=== PATIENT | male | born 1955 | race Caucasian/White ===

== ENCOUNTER → 2021-01-17 | Outpatient (CLI) | payer MEDICARE, OTHER ==
--- NOTE | 2021-01-17 13:51 | Diagnostic Imaging Report ---
INDICATION: Ankle pain, right. TECHNIQUE: Three views of the right ankle. CORRELATION STUDY: None. FINDINGS: No acute bony abnormality. Ankle mortise is maintained with alignment anatomic. Very small questionable lucency in the lateral talar dome, which a very small osteochondral defect would be difficult to exclude. Small plantar calcaneal spur formation. Prominent vascular calcification. Soft tissues are otherwise unremarkable. IMPRESSION: Negative for acute bony abnormality of the ankle. Question of potential very small osteochondral defect in the lateral talar dome. Dictated by: Dictated on workstation # [id number]
== END ==
LOC: RAD FS 11:44
PROVIDERS: ATTEND Nurse Practitioner
DX: M25.571 Pain in right ankle and joints of right foot (principal)
CPT/HCPCS: 73610

== ENCOUNTER 2022-06-12 18:13 | Emergency (ER) | payer MEDICARE, OTHER ==
[~2022-06-12] VITALS: Ht 177 cm; Wt 111.0 kg
[2022-06-12 18:20] VITALS: BP 159/93
--- NOTE | 2022-06-12 18:20 | ED Upper Extremity ---
General Chief Complaint: Laceration Stated Complaint: R PINKY LAC Source: patient Exam Limitations: no limitations History of Present Illness Date Seen by Provider: Jun 12, 2022 Time Seen by Provider: 18:16 Initial Comments 66yoM RHD with no pertinent PMH coming in after using a mandolin cutting potatoes and sliced his right little finger on the tip shortly prior arrival. Has some mild stinging pain in the area which is better when he is putting pressure on it. Does not take any blood thinners. Has not taken any medicines for it as of yet. Otherwise denying any other acute complaints. He believes his last tetanus shot was more than 10 years ago. Allergies and Home Medications Allergies Coded Allergies: No Known Drug Allergies (Unverified , 06/12/22) Patient Home Medication List Home Medication List Reviewed: Yes Review of Systems Constitutional: No fever EENTM: no symptoms reported Respiratory: no symptoms reported Musculoskeletal: see HPI Skin: see HPI Past Wmywbrf-Yganuc-Tcsiya Hx Patient Social History Substance use?: No Physical Exam Vital Signs Vital Signs - First Documented 06/12/22 18:20 Temp 36.2 Pulse 103 Resp 16 B/P (MAP) 159/93 (115) Pulse Ox 94 O2 Delivery Room Air Capillary Refill : Height, Weight, BMI Height: '" Weight: lbs. oz. kg; BMI Method: General Appearance: WD/WN, no apparent distress HEENT: PERRL/EOMI, normal ENT inspection, pharynx normal Cardiovascular: regular rate, rhythm Respiratory: chest non-tender Gastrointestinal: No distended Back: normal inspection Shoulder: normal inspection Elbow/Forearm: normal inspection Wrist: Yes normal inspection Hand: Right (Right little finger on the distal aspect of it with a small flap roughly 1 and half centimeters with very thin skin cut off, it is able to lay back on itself easily and is very superficial) Neurologic/Tendon: normal sensation, normal motor functions, normal tendon functions Neurologic/Psychiatric: no motor/sensory deficits, alert, normal mood/affect Skin: normal color, warm/dry Procedures/Interventions Wound Location: Upper Extremities Other Wound Location Right little finger distally Wound Length (cm): 1.5 Wound's Depth, Shape: superficial Irrigated w/ Saline (ccs): 500 Other Closure Supply: Steri Strip 03/15", Mastisol, Wound Adhesive Progress The skin that was sliced with a mandolin was very thin and superficial, I think sutures would have torn right through it so it was closed with tissue adhesive followed by Steri-Strips and a bandage afterwards. Patient tolerated this well. Progress/Results/Core Measures Results/Orders My Orders Orders - DEBBIE OH MD Dipht,Pertuss(Acell),Tet Adult (Boostrix (06/12/22 18:30) Vital Signs/I&O 06/12/22 18:20 Temp 36.2 Pulse 103 Resp 16 B/P (MAP) 159/93 (115) Pulse Ox 94 O2 Delivery Room Air Progress Progress Note : Progress Note 66-year-old male with above history coming in due to a little finger laceration on his right hand. ABCs were intact and vitals were stable on presentation. The laceration was cut very thin with a mandolin at home. I believe if I were to try to suture through it, the skin would likely tear. Because of this, it was laid over and opposes itself very well. Tissue adhesive was then used followed by Steri-Strips and Mastisol. Covered in a sterile dressing afterwards. Patient tolerated this well. Tdap updated today. He was then discharged home in stable condition with strict return precautions Departure Impression Primary Impression: Finger laceration Qualified Codes: S61.216A - Laceration without foreign body of right little finger without damage to nail, initial encounter Disposition: 01 HOME, SELF-CARE Condition: Stable Departure-Patient Inst. Decision time for Depature: 18:40 Referrals: NO,LOCAL PHYSICIAN (PCP/Family) Primary Care Physician Patient Instructions: Laceration Repair With Glue ED Add. Discharge Instructions: The laceration was repaired with glue and Steri-Strips. On top of the Steri- Strips is a bandage followed by a gauze dressing. You can take the white dressing on the very outside off in 48 hours. After that you can keep a fresh bandage on daily if you want. There are Steri-Strips under the bandage, keep those on for at least 7 to 10 days. After that, you can soak it in water and remove it gently. If there is still some scabbing afterwards, I would recommend just putting a regular bandage on after that. After 7 days, it can get wet, keep it dry until then. If you notice any redness spreading up your arm that would be concerning for infection, pus coming out of the wound, or any other concerns and have the wound evaluated by doctor. Otherwise, feel free to take everything off in 7 to 10 days. DEBBIE OH MD Jun 12, 2022 18:20
[2022-06-12] MEDS ORDERED: TETANUS,DIPTH,PERTUSS P/F (BOOSTRIX) 0.5 ML VIAL IM ONE (18:30)
== END 2022-06-12 18:44 | disposition home or self-care (01) ==
LOC: EDUNIT# 18:13 → ER FS 18:15
DX: S61.216A Laceration without foreign body of right little finger without damage to nail, initial encounter (principal); Z23 Encounter for immunization; W27.4XXA Contact with kitchen utensil, initial encounter; Y93.G1 Activity, food preparation and clean up
CPT/HCPCS: 90715; 99284

== ENCOUNTER 2022-08-04 23:29 | Emergency (ER) | payer MEDICARE, OTHER ==
[~2022-08-04] VITALS: Ht 177.8 cm; Wt 107.0 kg
--- NOTE | 2022-08-04 23:44 | ED Lower Extremity ---
General Chief Complaint: Lower Extremity Stated Complaint: RIGHT LEG SWELLING Source: patient Exam Limitations: no limitations History of Present Illness Date Seen by Provider: August 04, 2022 Time Seen by Provider: 23:36 Initial Comments 66-year-old male with no pertinent past medical history coming in due to right lower extremity swelling. He noticed it 45 minutes prior to arrival. He does not have any pain or redness associated with it. Denies any chest pain, shortness of breath, abdominal pain, nausea, vomiting, diarrhea, fever, chills, weakness, numbness, or any other concerns. Denies any prior history of DVT or PE, no recent surgery, no hemoptysis, no recent long travel, no hormone use. Allergies and Home Medications Allergies Coded Allergies: No Known Drug Allergies (Unverified , 06/12/22) Patient Home Medication List Home Medication List Reviewed: Yes Review of Systems Constitutional: No fever EENTM: no symptoms reported Respiratory: no symptoms reported Cardiovascular: no symptoms reported Gastrointestinal: no symptoms reported Genitourinary: no symptoms reported Musculoskeletal: see HPI Skin: no symptoms reported Psychiatric/Neurological: No Symptoms Reported Past Prykxbn-Xbsppl-Hvywrk Hx Patient Social History Tobacco Use?: No Use of E-Cig and/or Vaping dev: No Substance use?: No Alcohol Use?: No Immunizations Up To Date Influenza Vaccine Up-to-Date: Yes; Up-to-Date First/Initial COVID19 Vaccinat: 2020 Second COVID19 Vaccination Edi: 2020 Third COVID19 Vaccination Date: 2021 COVID19 Vaccine Building Construction Inspector: HereOrThereA X3 Physical Exam Vital Signs Vital Signs - First Documented 08/04/22 23:34 Temp 36.9 Pulse 115 Resp 22 B/P (MAP) 195/88 (123) Pulse Ox 95 O2 Delivery Room Air Capillary Refill : Height, Weight, BMI Height: '" Weight: lbs. oz. kg; 35.00 BMI Method: General Appearance: WD/WN, no apparent distress HEENT: PERRL/EOMI, normal ENT inspection, pharynx normal Neck: non-tender, full range of motion, supple, normal inspection Cardiovascular: regular rate, rhythm, no edema, no murmur Respiratory: chest non-tender, lungs clear, normal breath sounds, no respiratory distress, no accessory muscle use Gastrointestinal: normal bowel sounds, non tender, soft; No distended, No guarding, No rebound Hips: bilateral hip non-tender, bilateral hip normal inspection, bilateral hip normal range of motion, bilateral hip no evidence of injury Legs: bilateral leg non-tender, bilateral leg normal range of motion, bilateral leg no evidence of injury; right leg other (Trace edema to the right lower extremity with no pain) Neurologic/Tendon: normal sensation, normal motor functions, normal tendon functions Neurologic/Psychiatric: no motor/sensory deficits, alert, normal mood/affect Skin: normal color, warm/dry Progress/Results/Core Measures Results/Orders Lab Results Laboratory Tests Test 08/05/22 00:05 Range/Units White Blood Count 11.5 H 4.3-11.0 10^3/uL Red Blood Count 5.24 4.30-5.52 10^6/uL Hemoglobin 14.6 13.3-17.7 g/dL Hematocrit 43 40-54 % Mean Corpuscular Volume 83 80-99 fL Mean Corpuscular Hemoglobin 28 25-34 pg Mean Corpuscular Hemoglobin Concent 34 32-36 g/dL Red Cell Distribution Width 14.0 10.0-14.5 % Platelet Count 179 130-400 10^3/uL Mean Platelet Volume 10.0 9.0-12.2 fL Neutrophils (%) (Auto) 63 42-75 % Lymphocytes (%) (Auto) 22 12-44 % Monocytes (%) (Auto) 8 0-12 % Eosinophils (%) (Auto) 6 0-10 % Basophils (%) (Auto) 1 0-10 % Neutrophils # (Auto) 7.2 1.8-7.8 X 10^3 Lymphocytes # (Auto) 2.6 1.0-4.0 X 10^3 Monocytes # (Auto) 1.0 0.0-1.0 X 10^3 Eosinophils # (Auto) 0.7 H 0.0-0.3 10^3/uL Basophils # (Auto) 0.1 0.0-0.1 10^3/uL Prothrombin Time 12.7 12.2-14.7 SEC INR Comment 0.9 0.8-1.4 Activated Partial Thromboplast Time 28 24-35 SEC Sodium Level 135 135-145 MMOL/L Potassium Level 4.0 3.6-5.0 MMOL/L Chloride Level 101 98-107 MMOL/L Carbon Dioxide Level 21 21-32 MMOL/L Anion Gap 13 5-14 MMOL/L Blood Urea Nitrogen 23 H 7-18 MG/DL Creatinine 0.99 0.60-1.30 MG/DL Estimat Glomerular Filtration Rate 83 BUN/Creatinine Ratio 23 Glucose Level 267 H 70-105 MG/DL Calcium Level 9.5 8.5-10.1 MG/DL My Orders Orders - DEBBIE OH MD Basic Metabolic Panel (08/04/22 23:58) Cbc With Automated Diff (08/04/22 23:58) Fibrin Degradation Products (08/04/22 23:58) Protime With Inr (08/05/22 00:01) Partial Thromboplastin Time (08/05/22 00:01) Vital Signs/I&O 08/04/22 23:34 Temp 36.9 Pulse 115 Resp 22 B/P (MAP) 195/88 (123) Pulse Ox 95 O2 Delivery Room Air Progress Progress Note : Progress Note 66-year-old male coming in due to right lower extremity swelling. ABCs were intact and vitals were stable on presentation. Physical exam with slight swelling on the right lower extremity compared to the left. Labs were drawn and were significant for slightly elevated white blood cell count, normal platelet count, normal creatinine, elevated glucose. I did a [id number] ultrasound, and the veins in his popliteal region were not fully compressible although no overt clot seen in the region. Distal thigh vessels also were not fully compressible concerning for a DVT. Basic labs were obtained to assess his kidney function. We will give him Lovenox here followed by a prescription for blood thinners. I will order an outpatient ultrasound to be done formally as well. The patient currently does not have a doctor, but plans to follow-up with Dr. Hand. Departure Impression Primary Impression: Right leg swelling Additional Impression: Elevated glucose level Disposition: HOME, SELF-CARE Condition: Stable Departure-Patient Inst. Decision time for Depature: 00:40 Referrals: NO,LOCAL PHYSICIAN (PCP/Family) Primary Care Physician Patient Instructions: Deep Vein Thrombosis (DVT) ED Add. Discharge Instructions: We are concerned you could have a blood clot in your leg. You will need to have a formal ultrasound done tomorrow morning in [place]. They should tell the results to the ER physician who can discuss the results to you. If positive, continue the blood thinners until you are able to follow-up with Dr. Hand and he can manage your care from there. Regardless of the test result, please follo w-up though with the physician so that you have a primary care provider if something ever comes up. If you begin having severe chest pain or severe shortness of breath, we want you to be evaluated again by a doctor. Also, your blood sugar level was elevated in the ER today, it is very possible you could be diabetic. This makes it even more important to follow-up as if this is uncontrolled can lead to numerous health issues. Scripts Apixaban (Eliquis) 5 Mg Tablet 5 MG PO BID for 30 Days, #74 TAB TAKE 2 TABLETS BID X 7 DAYS, THEN 1 TABLET BID Prov: DEBBIE OH MD 08/05/22 Work/School Note: Work Release Form Date Seen in the Emergency Department: August 05, 2022 Return to Work: August 06, 2022 Restrictions: No Restrictions DEBBIE OH MD August 04, 2022 23:44
[2022-08-05 00:16] LABS: HEMATOCRIT 43 % (40-54); HEMOGLOBIN 14.6 g/dL (13.3-17.7); LYMPHOCYTES % (AUTO) 22 % (12-44); MEAN CORPUSCULAR HEMOGLOBIN 28 pg (25-34); MEAN CORPUSCULAR HGB CONC 34 g/dL (32-36); MEAN CORPUSCULAR VOLUME 83 fL (80-99); NEUTROPHILS % (AUTO) 63 % (42-75); PLATELET COUNT 179 10^3/uL (130-400); WHITE BLOOD COUNT 11.5 10^3/uL (4.3-11.0)
[2022-08-05 00:17] LABS: BASOPHILS # (AUTO) 0.1 10^3/uL (0.0-0.1); BASOPHILS % (AUTO) 1 % (0-10); EOSINOPHILS # (AUTO) 0.7 10^3/uL (0.0-0.3); EOSINOPHILS % (AUTO) 6 % (0-10); LYMPHOCYTES # (AUTO) 2.6 X 10^3 (1.0-4.0); MONOCYTES % (AUTO) 8 % (0-12); NEUTROPHILS # (AUTO) 7.2 X 10^3 (1.8-7.8)
[2022-08-05 00:23] LABS: INR 0.9 (0.8-1.4); PROTHROMBIN TIME PATIENT 12.7 SEC (12.2-14.7)
[2022-08-05 00:30] LABS: CALCIUM 9.5 MG/DL (8.5-10.1); CREATININE SERUM 0.99 MG/DL (0.60-1.30)
[2022-08-05] MEDS ORDERED: APIX5TAB PO (00:34)
[2022-08-05 00:38] LABS: FIBRIN DEGRADATION PRODUCTS 8.31 UG/ML (0.00-0.49)
[2022-08-05] MEDS ORDERED: ENOXAPARIN 60 MG/0.6 ML (LOVENOX) SYR SC ONE (00:45)
[2022-08-05 00:57] VITALS: BP 154/78
== END 2022-08-05 00:57 | disposition home or self-care (01) ==
LOC: EDUNIT# 23:29 → ER FS 23:31
DX: R22.41 Localized swelling, mass and lump, right lower limb (principal); R73.9 Hyperglycemia, unspecified
CPT/HCPCS: 36415; 80048; 85025; 85379; 85610; 85730

== ENCOUNTER → 2022-08-05 | Outpatient (CLI) | payer MEDICARE, OTHER ==
[~2022-08-05] MED LIST: APIX5TAB PO
--- NOTE | 2022-08-05 11:56 | Diagnostic Imaging Report ---
PROCEDURE: US right lower extremity venous. TECHNIQUE: Multiple real-time grayscale images were obtained over the right lower extremity in various projections. Additional spectral analysis and color Doppler duplex images were also obtained. INDICATION: Right leg swelling. The right common femoral vein as well as the upper and middle portion of the superficial femoral vein are patent. There is nonocclusive thrombus within the lower portion of the superficial femoral vein. No flow is identified in the peroneal vein. No fluid collections are seen. IMPRESSION: Nonocclusive DVT in the distal superficial femoral vein. There is also occlusive thrombus within the right peroneal vein of the calf. Dictated by: Dictated on workstation # [id number]
== END ==
LOC: RAD 11:12
PROVIDERS: ATTEND Emergency Medicine
DX: I82.4Z1 Acute embolism and thrombosis of unspecified deep veins of right distal lower extremity (principal); I82.451 Acute embolism and thrombosis of right peroneal vein

== ENCOUNTER 2022-08-19 11:10 | Observation (INO) | payer MEDICARE, OTHER ==
[~2022-08-19] VITALS: Ht 177.8 cm; Wt 106.6 kg
[2022-08-19] MEDS ORDERED: FAMOTIDINE 20 MG (PEPCID) TABLET PO STA (11:16)
--- NOTE | 2022-08-19 11:18 | ED Chest Pain ---
General Stated Complaint: SHOULDER/CHEST PAIN Source: patient, old records Exam Limitations: no limitations History of Present Illness Date Seen by Provider: Aug 19, 2022 Time Seen by Provider: 11:11 Initial Comments 66-year-old male with past medical history of DVT recently on Eliquis coming in due to chest pain. Pain started 3 and half hours ago, has been constant, dull, nothing really seems to make it better or worse. Has never really had pain like this before. Denies any cough, hemoptysis, shortness of breath, fever, chills, rash, weakness, numbness, or any other concerns. He has not missed any doses of his Eliquis. The swelling in his leg has significantly improved since the diagnosis of his DVT. Allergies and Home Medications Allergies Coded Allergies: No Known Drug Allergies (Unverified , 06/12/22) Patient Home Medication List Home Medication List Reviewed: Yes Apixaban (Eliquis) 5 Mg Tablet, 5 MG PO BID Prescribed by: DEBBIE OH on 08/05/22 0034 Review of Systems Review of Systems Constitutional: No fever EENTM: No Symptoms Reported Respiratory: No Symptoms Reported Cardiovascular: See HPI Gastrointestinal: No Symptoms Reported Genitourinary: No Symptoms Reported Musculoskeletal: no symptoms reported Skin: no symptoms reported Psychiatric/Neurological: No Symptoms Reported Past Sywdehi-Nqjoaz-Xbzlap Hx Patient Social History Tobacco Use?: No Immunizations Up To Date First/Initial COVID19 Vaccinat: 2020 Second COVID19 Vaccination Edi: 2020 Third COVID19 Vaccination Date: 2021 Physical Exam Vital Signs Vital Signs - First Documented 08/19/22 11:10 Temp 35.3 Pulse 93 Resp 16 B/P (MAP) 151/86 (107) Pulse Ox 94 O2 Delivery Room Air Capillary Refill : Height, Weight, BMI Height: '" Weight: lbs. oz. kg; 33.00 BMI Method: General Appearance: No Apparent Distress, WD/WN HEENT: PERRL/EOMI, Normal ENT Inspection, Pharynx Normal Neck: Full Range of Motion, Normal Inspection, Non Tender, Supple Respiratory: Chest Non Tender, Lungs Clear, Normal Breath Sounds, No Accessory Muscle Use, No Respiratory Distress Cardiovascular: Regular Rate, Rhythm, No Edema, Normal Peripheral Pulses Gastrointestinal: Normal Bowel Sounds, Non Tender, Soft; No Distended, No Guarding Extremity: Normal Capillary Refill, Normal Inspection, Normal Range of Motion, Non Tender, No Calf Tenderness, No Pedal Edema Neurologic/Psychiatric: Alert, No Motor/Sensory Deficits, Normal Mood/Affect Skin: Normal Color, Warm/Dry Critical Care Note Critical Care Start Time: 11:15 Stop Time: 12:38 Total Time (minutes) 41 Progress The patient had symptomatic bradycardia with hypotension and required atropine as well as consultation with cardiology. He was at significant risk for cardiovascular collapse. All time spent for critical care was separate from procedures Progress/Results/Core Measures Results/Orders Lab Results Laboratory Tests Test 08/19/22 11:32 Range/Units White Blood Count 8.5 4.3-11.0 10^3/uL Red Blood Count 5.46 4.30-5.52 10^6/uL Hemoglobin 15.0 13.3-17.7 g/dL Hematocrit 45 40-54 % Mean Corpuscular Volume 82 80-99 fL Mean Corpuscular Hemoglobin 28 25-34 pg Mean Corpuscular Hemoglobin Concent 33 32-36 g/dL Red Cell Distribution Width 13.8 10.0-14.5 % Platelet Count 251 130-400 10^3/uL Mean Platelet Volume 9.5 9.0-12.2 fL Immature Granulocyte % (Auto) 0 % Neutrophils (%) (Auto) 72 42-75 % Lymphocytes (%) (Auto) 19 12-44 % Monocytes (%) (Auto) 7 0-12 % Eosinophils (%) (Auto) 1 0-10 % Basophils (%) (Auto) 1 0-10 % Neutrophils # (Auto) 6.1 1.8-7.8 10^3/uL Lymphocytes # (Auto) 1.6 1.0-4.0 10^3/uL Monocytes # (Auto) 0.6 0.0-1.0 10^3/uL Eosinophils # (Auto) 0.1 0.0-0.3 10^3/uL Basophils # (Auto) 0.1 0.0-0.1 10^3/uL Immature Granulocyte # (Auto) 0.0 0.0-0.1 10^3/uL Prothrombin Time 14.3 12.2-14.7 SEC INR Comment 1.1 0.8-1.4 Activated Partial Thromboplast Time 31 24-35 SEC Sodium Level 136 135-145 MMOL/L Potassium Level 4.5 3.6-5.0 MMOL/L Chloride Level 102 98-107 MMOL/L Carbon Dioxide Level 23 21-32 MMOL/L Anion Gap 11 5-14 MMOL/L Blood Urea Nitrogen 20 H 7-18 MG/DL Creatinine 0.96 0.60-1.30 MG/DL Estimat Glomerular Filtration Rate 87 BUN/Creatinine Ratio 21 Glucose Level 253 H 70-105 MG/DL Calcium Level 9.2 8.5-10.1 MG/DL Corrected Calcium 9.1 8.5-10.1 MG/DL Magnesium Level 2.1 1.6-2.4 MG/DL Total Bilirubin 1.0 0.1-1.0 MG/DL Aspartate Amino Transf (AST/SGOT) 14 5-34 U/L Alanine Aminotransferase (ALT/SGPT) 16 0-55 U/L Alkaline Phosphatase 72 40-136 U/L Troponin I < 0.30 <0.30 NG/ML Pro-B-Type Natriuretic Peptide < 36.0 <125.0 PG/ML Total Protein 7.6 6.4-8.2 GM/DL Albumin 4.1 3.2-4.5 GM/DL Lipase 13 8-78 U/L My Orders Orders - DEBBIE OH MD Cbc With Automated Diff (08/19/22 11:16) Magnesium (08/19/22 11:16) Chest 1 View Ap/Pa Only (08/19/22 11:16) Ekg Tracing (08/19/22 11:16) Comprehensive Metabolic Panel (08/19/22 11:16) Protime With Inr (08/19/22 11:16) Partial Thromboplastin Time (08/19/22 11:16) O2 (08/19/22 11:16) Monitor-Rhythm Ecg Trace Only (08/19/22 11:16) Aspirin Chewable Tablet (Baby Aspirin Ch (08/19/22 11:30) Ed Iv/Invasive Line Start (08/19/22 11:16) Lipase (08/19/22 11:16) Troponin I Fs (08/19/22 11:16) Probnp Fs (08/19/22 11:16) Lidocaine 2% Viscous 15 Ml (Xylocaine Vi (08/19/22 11:30) Famotidine Tablet (Pepcid Tablet) (08/19/22 11:16) Antacid Suspension (Mylanta Suspension (08/19/22 11:30) Ekg Tracing (08/19/22 11:35) Atropine Injection (Atropine Injection) (08/19/22 11:35) Atropine Injection (Atropine Injection) (08/19/22 11:38) Ns Iv 1000 Ml (Sodium Chloride 0.9%) (08/19/22 11:38) Medications Given in ED Current Medications Medications Dose Ordered Sig/Manav Route Start Time Stop Time Status Last Admin Dose Admin Aspirin 324 mg ONCE ONCE PO 08/19/22 11:30 08/19/22 11:31 DC 08/19/22 12:08 324 MG Atropine Sulfate 0.4 mg STK-MED ONCE .ROUTE 08/19/22 11:38 08/19/22 11:43 DC 08/19/22 11:40 0.4 MG Sodium Chloride 1,000 ml @ ud STK-MED ONCE .ROUTE 08/19/22 11:38 08/19/22 11:43 DC 08/19/22 11:40 999 MLS/HR Vital Signs/I&O 08/19/22 11:10 Temp 35.3 Pulse 93 Resp 16 B/P (MAP) 151/86 (107) Pulse Ox 94 O2 Delivery Room Air Progress Progress Note : Progress Note 66-year-old male presenting initially for chest pain. ABCs were initially intact on arrival and he was in no acute distress. Initial EKG ordered and interpreted by me showing sinus rhythm in the 90s with no acute ischemic changes. An IV was placed and basic labs were obtained including cardiac biomarkers. X-ray ordered and interpreted by me showing likely atelectasis with no obvious pneumothorax and normal cardiac silhouette. Basic labs significant for negative troponin, normal BNP, normal creatinine, unremarkable white blood cell count. On reassessment, I was watching the monitor, his heart rate dropped down to the 30s. Blood pressure dropped down to the 50s systolic and he was very symptomatic at that time and was diaphoretic. Immediate IV atropine given and IV fluids with improvement in his heart rates and symptoms. Unclear why his heart rate jumped on the slope, he is not on any type of beta-julee or calcium channel julee. Would be unusual for him to have bradycardia as a result of a PE, I would expect the heart rate to actually be faster. It is possible he had an NM although there were no acute ischemic changes even on repeat EKG. He will certainly need a repeat troponin. At that time I contacted Dr. Leach, the consumer relations complaint clerk who will be consulted on the patient. I contacted Dr. Faria who will admit the patient to the intensive care unit. I then contacted the ICU physician for signout. Initial ECG Impression Date: Aug 19, 2022 Initial ECG Impression Time: 11:16 Initial ECG Rate: 92 Initial ECG Rhythm: Normal Sinus Comment Narrow QRS, normal axis, no significant ST changes or T wave abnormalities EKG : EKG Time: 11:36 Rate: 39 Rhythm: S.Pedro Comment Narrow QRS, normal axis, no STEMI, compared to prior EKG, significant for bradycardia Diagnostic Imaging Diagonstic Imaging: Xray (chest) Comments [facility], [place] NAME: KJ JIMENEZ [facility] REC#: [id number] PT STATUS: REG ER : 1955 PHYSICIAN: DEBBIE OH MD ADMIT DATE: 08/19/22/ER FS Draft Date of Exam:08/19/22 CHEST 1 VIEW AP/PA ONLY INDICATION: Back pain. Shoulder pain. No comparison available FINDINGS: There is minimal discoid atelectasis at the left base. There is no alveolar consolidation to suggest pneumonia. There is no large effusion or pneumothorax. Heart size is mildly prominent with a central pulmonary vascularity currently appears appropriate without edema or failure. IMPRESSION: 1. Mild discoid atelectasis at the left base. Lungs otherwise clear. There is no effusion. There are no findings of edema. There is mild enlargement of the cardiac silhouette. Dictated on workstation # [id number] Dict: 08/19/22 1134 Trans: 08/19/22 1143 [id number] Interpreted by: LOUIS PRESCOTT MD Electronically signed by: Departure Impression Primary Impression: Chest pain Qualified Codes: R07.2 - Precordial pain Additional Impression: Symptomatic bradycardia Disposition: 30 STILL A PATIENT Condition: Stable Admissions Decision to Admit Reason: Admit from ER (General) Decision to Admit/Date: Aug 19, 2022 Time/Decision to Admit Time: 12:20 Transfer Method of Transfer: EMS Departure-Patient Inst. Referrals: NO,LOCAL PHYSICIAN (PCP/Family) Primary Care Physician DEBBIE OH MD Aug 19, 2022 11:18
[2022-08-19] MEDS ORDERED: ASPIRIN 81 MG CHEW (CHILDREN'S ASA) PO ONE (11:30)
[2022-08-19] MEDS ORDERED: ANTACID SUSP 30 ML UDC (MYLANTA) PO ONE (11:30)
[2022-08-19] MEDS ORDERED: LIDOCAINE 2% VISCOUS 15 ML UDC PO ONE (11:30)
[2022-08-19] MEDS ORDERED: ATROPINE INJECTION 1 MG/1 ML SDV IJ STA (11:35)
[2022-08-19 11:37] LABS: BASOPHILS # (AUTO) 0.1 10^3/uL (0.0-0.1); BASOPHILS % (AUTO) 1 % (0-10); EOSINOPHILS # (AUTO) 0.1 10^3/uL (0.0-0.3); EOSINOPHILS % (AUTO) 1 % (0-10); HEMATOCRIT 45 % (40-54); LYMPHOCYTES # (AUTO) 1.6 10^3/uL (1.0-4.0); LYMPHOCYTES % (AUTO) 19 % (12-44); MEAN CORPUSCULAR HEMOGLOBIN 28 pg (25-34); MEAN CORPUSCULAR HGB CONC 33 g/dL (32-36); MEAN CORPUSCULAR VOLUME 82 fL (80-99); MEAN PLATELET VOLUME 9.5 fL (9.0-12.2); MONOCYTES # (AUTO) 0.6 10^3/uL (0.0-1.0); MONOCYTES % (AUTO) 7 % (0-12); NEUTROPHILS # (AUTO) 6.1 10^3/uL (1.8-7.8); NEUTROPHILS % (AUTO) 72 % (42-75); PLATELET COUNT 251 10^3/uL (130-400); WHITE BLOOD COUNT 8.5 10^3/uL (4.3-11.0)
[2022-08-19] MEDS ORDERED: NS IV 1000 ML 1,000 ML ONE (11:38)
[2022-08-19] MEDS ORDERED: ATROPINE INJ 0.4 MG/ML SDV ONE (11:38)
--- NOTE | 2022-08-19 11:43 | Diagnostic Imaging Report ---
INDICATION: Back pain. Shoulder pain. No comparison available FINDINGS: There is minimal discoid atelectasis at the left base. There is no alveolar consolidation to suggest pneumonia. There is no large effusion or pneumothorax. Heart size is mildly prominent with a central pulmonary vascularity currently appears appropriate without edema or failure. IMPRESSION: 1. Mild discoid atelectasis at the left base. Lungs otherwise clear. There is no effusion. There are no findings of edema. There is mild enlargement of the cardiac silhouette. Dictated by: Dictated on workstation # [id number]
[2022-08-19 11:47] LABS: INR 1.1 (0.8-1.4); PROTHROMBIN TIME PATIENT 14.3 SEC (12.2-14.7)
[2022-08-19 11:56] LABS: ALANINE AMINOTRANSFERASE 16 U/L (0-55); ALBUMIN 4.1 GM/DL (3.2-4.5); ALKALINE PHOSPHATASE 72 U/L (40-136); BUN/CREATININE RATIO 21; CALCIUM 9.2 MG/DL (8.5-10.1); CARBON DIOXIDE 23 MMOL/L (21-32); CHLORIDE 102 MMOL/L (98-107); CREATININE SERUM 0.96 MG/DL (0.60-1.30); GFR ESTIMATED 87; GLUCOSE 253 MG/DL (70-105); LIPASE 13 U/L (8-78); MAGNESIUM 2.1 MG/DL (1.6-2.4); POTASSIUM 4.5 MMOL/L (3.6-5.0); SODIUM 136 MMOL/L (135-145); TOTAL PROTEIN 7.6 GM/DL (6.4-8.2)
[2022-08-19] MEDS ORDERED: HYDROmorphone 2 MG/ML VIAL (DILAUDID) IV PRN ×2 (15:00→15:45)
[2022-08-19] MEDS ORDERED: ALPRAZolam 0.5 MG (XANAX) TAB PO PRN ×2 (15:00→15:45)
[2022-08-19] MEDS ORDERED: NS IV 500 ML 500 ML IV PRN ×2 (15:00→15:30)
[2022-08-19] MEDS ORDERED: diphenhydrAMINE 50 MG/ML INJ (BENADRYL) IVP PRN ×2 (15:00→15:45)
[2022-08-19] MEDS ORDERED: NS IV 1000 ML 1,000 ML IV SCH (15:00)
[2022-08-19] MEDS ORDERED: ONDANSETRON 4 MG/2 ML (SDV) Z0FRAN IV PRN ×2 (15:00→15:45)
[2022-08-19] MEDS ORDERED: MELATONIN 3 MG TABLET PO PRN ×2 (15:00→15:45)
[2022-08-19] MEDS ORDERED: ANTACID SUSP 30 ML UDC (MYLANTA) PO PRN ×2 (15:00→15:45)
[2022-08-19] MEDS ORDERED: polyethylene glycoL POWDER 17 GM (MIRALAX) PACK PO PRN ×2 (15:00→15:45)
[2022-08-19] MEDS ORDERED: BISACODYL 10 MG SUPP (DULCOLAX) PR PRN ×2 (15:00→15:45)
[2022-08-19] MEDS ORDERED: diphenhydrAMINE 25 MG TAB (BENADRYL) PO PRN ×2 (15:00→15:45)
[2022-08-19] MEDS ORDERED: ONDANSETRON 4 MG (ZOFRAN) ORAL DISSOLVE TAB PO PRN ×2 (15:00→15:45)
[2022-08-19] MEDS ORDERED: ACETAMINOPHEN 325 MG TABLET PO PRN ×2 (15:00→15:45)
[2022-08-19 15:47] VITALS: BP 151/86
[2022-08-19] MEDS: NS IV 1000 ML 1,000 ML IV SCH (15:52)
[2022-08-19] MEDS: inSUlin ASPART (NovoLOG) 1 UNIT/0.01 ML (CHARGE PER UNIT) SC SCH ×2 (15:56→20:05)
[2022-08-19] MEDS: CEFEPIME INJECTION 2,000 MG in NS (IVPB) 50 ML IV SCH (15:56)
[2022-08-19] MEDS ORDERED: RT-ALBUTEROL SULF 2.5 MG/3 ML PRE-MIX VIAL INH PRN (16:00)
[2022-08-19] MEDS ORDERED: inSUlin ASPART (NovoLOG) 1 UNIT/0.01 ML (CHARGE PER UNIT) SC SCH (16:00)
[2022-08-19] MEDS ORDERED: CEFEPIME INJECTION 2,000 MG in NS (IVPB) 50 ML IV SCH (16:00)
--- NOTE | 2022-08-19 16:03 | Tele-ICU Consult ---
History of Present Illness History of Present Illness Date Seen by Provider: Aug 19, 2022 Time Seen by Provider: 16:02 Date of Admission History of Present Illness (Tele-ICU Physician , consultation as per request of PCP Service provided via interactive audio and video telecommunications E-CARE system to a patient admitted to ICU bed in [facility]. Available chart/ vitals / labs / Images reviewed H&P is from ER notes Patient's information available about PMH, Shx, Fhx allergy reviewed inEMR. ROS as per chart and RN report Now in ICU, hemodynamically stable Video assessment done using teleICU camera, rest of exam as per RN Discussed with RN. Hospital course: 08/19- 66-year-old male with past medical history of DVT recently on Eliquis coming in due to chest pain and bradycardia A/P Bradycardia - not on any meds to explain - if not having ACS , one might consider PE given recent DVT ( PE may also present with atypical symptoms including cardiac arrhythmia) . Would await for ECHO , proceed with CT if ECHO is suspicious for high RV pressure Chest pain - trop negative m, EKG reviewed - await next trop - ECHO - cards consulted - follow DVT RLE right peroneal vein Dx 08/05/22 - unprovoked - ? ethiology - on Eliquis Po - cont now started on ABX as per PCP hyperglucemia - Hba1c and ISS Lines : periph , (Central Line Necessity Reviewed) Thomas: void OG: Nutrition: Analgesia: Anxiety/ delirium VTE Prophylaxis: eliquis Stress Ulcer Prophylaxis: na Plans in collaboration with bedside consultants and IM MDs. Discussed with RN to reach out if any questions or concerns A total of 25minutes of critical care time was devoted to this patient today, required to treat and/or prevent further deterioration of critical care condition ( as above ) . I am remotely monitoring this patient from another state. I am unable to do the bedside exam, and history/physical and pertinent information is taken from other notes in the computer and bedside staff. . Allergies and Home Medications Allergies Coded Allergies: No Known Drug Allergies (Unverified , 06/12/22) Home Medications Apixaban 5 Mg Tablet, 5 MG PO BID TAKE 2 TABLETS BID X 7 DAYS, THEN 1 TABLET BID Prescribed by: DEBBIE OH on 08/05/22 0034 Past Medical/Social/Family Hx Patient Social History Tobacco Use?: No Use of E-Cig and/or Vaping dev: No Substance use?: No Alcohol Use?: No Pt stated abuse/neglect: No Immunizations Up To Date Influenza Vaccine Up-to-Date: Yes; Up-to-Date First/Initial COVID19 Vaccinat: 2020 Second COVID19 Vaccination Edi: 2020 Tetanus Booster (TDap): Unknown Current Status Advance Directives: No Communicates: Verbally Primary Language: Kuwaiti Preferred Spoken Language: Kuwaiti Is interpretation needed?: No Sensory deficits: Vision impairment Implanted or Applied Medical D: None Review of Systems Constitutional: see HPI Focused Exam Height, Weight, BMI Height: '" Weight: lbs. oz. kg; 33.81 BMI Method: Exam Exam Patient acknowledged, consented, and participated in this virtual visit which was conducted using real time audio/video Vital Signs Date Time Temp Pulse Resp B/P (MAP) Pulse Ox O2 Delivery O2 Flow Rate FiO2 08/19/22 15:58 95 Room Air 0.00 08/19/22 15:54 36.3 08/19/22 15:47 35.3 93 94 21 08/19/22 15:00 82 32 129/81 (97) 94 Room Air 08/19/22 13:59 35.3 87 16 147/56 95 Room Air 08/19/22 11:10 35.3 93 16 151/86 (107) 94 Room Air Height & Weight Height: '" Weight: lbs. oz. kg; 33.81 BMI Method: General Appearance: No Apparent Distress, WD/WN, Other HEENT: PERRL/EOMI, Normal ENT Inspection, Pharynx Normal Neck: Full Range of Motion, Normal Inspection, Non Tender, Supple Respiratory: Chest Non Tender, Lungs Clear, Normal Breath Sounds, No Accessory Muscle Use, No Respiratory Distress Cardiovascular: Regular Rate, Rhythm, No Edema, Normal Peripheral Pulses Capillary Refill: Less Than 3 Seconds Extremity: Normal Capillary Refill, Normal Inspection, Normal Range of Motion, Non Tender, No Calf Tenderness, No Pedal Edema Neurologic/Psychiatric: Alert, No Motor/Sensory Deficits, Normal Mood/Affect Skin: Normal Color, Warm/Dry Results Lab Laboratory Tests 08/19/22 11:32 Assessment/Plan Assessment/Plan 1 MOJGAN GIBSON MD Aug 19, 2022 16:03
[2022-08-19] MEDS ORDERED: cefTRIAXone IV/IM 1,000 MG in NS (IVPB) 50 ML IV SCH (16:45)
[2022-08-19] MEDS ORDERED: AZITHROMYCIN INJECTION 500 MG in NS (IVPB) 250 ML IV SCH (17:00)
--- NOTE | 2022-08-19 17:04 | History & Physical ---
History of Present Illness HPI/Chief Complaint Chief complaint: Symptomatic bradycardia with early pneumonia with early pneumonia HPI: This is a 66-year-old male clinic patient of [facility] who presented to the [place] ER with complaints of generalized weakness and shortness of breath found to have severe bradycardia that progressively worsened during his stay in the ER. His heart rate decreased to 30 at the very lowest requiring intervention with IV fluids and cardiology evaluation. Chest x-ray appeared to have early PNA consistent with recent bronchitis treated 2 weeks ago. Also to note he had a DVT dx 2 weeks ago and is currently on Eliquis. IVF will be maintained and abx. Source: patient, family Exam Limitations: no limitations Date Seen 08/19/22 Time Seen by a Provider: 18:00 Attending Physician Yvonne Gaston Aprn PCP Admitting Physician: Celina Faria DO Attending Physician: Celina Faria DO Referring Physician Date of Admission Aug 19, 2022 at 14:54 Home Medications & Allergies Home Medications Reviewed patient Home Medication Reconciliation performed by pharmacy medication reconciliations fire control technician and/or nursing. Patients Allergies have been reviewed. Allergies Allergies Coded Allergies No Known Drug Allergies (Unverified06/12/22) Past Zxevmvg-Btclom-Zusvcc Hx Past Med/Social Hx: Reviewed Nursing Past Med/Soc Hx, Reviewed and Corrections made Patient Social History Marrital Status: Employed/Student: retired Alcohol Use: Denies Use Smoking Status: Never a Smoker Recent Foreign Travel: No Contact w/other who traveled: No Past Medical History Cardiac: Deep Vein Thrombosis Review of Systems Constitutional: see HPI, dizziness, malaise, weakness Respiratory: dyspnea on exertion Cardiovascular: chest pain, palpitations Physical Exam Physical Exam Vital Signs Vital Signs - First Documented 08/19/22 08/19/22 08/19/22 11:10 15:47 15:58 Temp 35.3 Pulse 93 Resp 16 B/P (MAP) 151/86 (107) Pulse Ox 94 O2 Delivery Room Air O2 Flow Rate 0.00 FiO2 21 Capillary Refill : Less Than 3 Seconds Height, Weight, BMI Height: '" Weight: lbs. oz. kg; 33.81 BMI Method: General Appearance: No Apparent Distress, WD/WN, Chronically ill, Obese, Other HEENT: PERRL/EOMI, Normal ENT Inspection, Pharynx Normal Neck: Full Range of Motion, Normal Inspection, Non Tender, Supple Respiratory: Chest Non Tender, Lungs Clear, Normal Breath Sounds, No Accessory Muscle Use, No Respiratory Distress Cardiovascular: Regular Rate, Rhythm, No Edema, Normal Peripheral Pulses Gastrointestinal: Normal Bowel Sounds, Non Tender, Soft; No Distended, No Guarding Extremity: Normal Capillary Refill, Normal Inspection, Normal Range of Motion, Non Tender, No Calf Tenderness, No Pedal Edema Neurologic/Psychiatric: Alert, No Motor/Sensory Deficits, Normal Mood/Affect Skin: Normal Color, Warm/Dry Results Results/Procedures Labs Laboratory Tests 08/19/22 11:32 Patient resulted labs reviewed. Assessment/Plan Admission Diagnosis Assessment: Symptomatic bradycardia Early PNA s/p recent bronchitis Recent DVT on Eliquis Plan: Monitor bradycardia IVF IV abx Cardiology consultation appreciated Needs sleep study Admission Status: Observation Clinical Quality Measures AMI/AHF: ASA po Prior to arrival: No DVT/VTE Risk/Contraindication: Contraindications-Mechi: Other *list below* Other: dvt CELINA FARIA DO Aug 19, 2022 17:04
[2022-08-19] MEDS: DOCUSATE SODIUM 100 MG (COLACE) CAP PO SCH (20:05)
[2022-08-19] MEDS ORDERED: DOCUSATE SODIUM 100 MG (COLACE) CAP PO SCH (21:00)
[2022-08-19] MEDS ORDERED: APIXABAN 5 MG (ELIQUIS) TABLET PO SCH ×2 (21:00)
[2022-08-20] MEDS: CEFEPIME INJECTION 2,000 MG in NS (IVPB) 50 ML IV SCH (03:38)
[2022-08-20 04:54] LABS: BASOPHILS # (AUTO) 0.1 10^3/uL (0.0-0.1); BASOPHILS % (AUTO) 1 % (0-10); EOSINOPHILS # (AUTO) 0.1 10^3/uL (0.0-0.3); EOSINOPHILS % (AUTO) 1 % (0-10); HEMATOCRIT 44 % (40-54); HEMOGLOBIN 14.3 g/dL (13.3-17.7); LYMPHOCYTES % (AUTO) 23 % (12-44); MEAN CORPUSCULAR HEMOGLOBIN 27 pg (25-34); MEAN CORPUSCULAR HGB CONC 32 g/dL (32-36); MEAN CORPUSCULAR VOLUME 83 fL (80-99); MEAN PLATELET VOLUME 9.8 fL (9.0-12.2); MONOCYTES # (AUTO) 0.8 10^3/uL (0.0-1.0); MONOCYTES % (AUTO) 9 % (0-12); NEUTROPHILS # (AUTO) 5.6 10^3/uL (1.8-7.8); NEUTROPHILS % (AUTO) 65 % (42-75); PLATELET COUNT 243 10^3/uL (130-400); WHITE BLOOD COUNT 8.6 10^3/uL (4.3-11.0)
[2022-08-20 05:08] LABS: ALBUMIN 3.7 GM/DL (3.2-4.5); BILIRUBIN,TOTAL 1.2 MG/DL (0.1-1.0); CALCIUM 8.9 MG/DL (8.5-10.1); CREATININE SERUM 0.91 MG/DL (0.60-1.30); MAGNESIUM 2.1 MG/DL (1.6-2.4); PHOSPHORUS 3.3 MG/DL (2.3-4.7); POTASSIUM 4.1 MMOL/L (3.6-5.0); TOTAL PROTEIN 7.1 GM/DL (6.4-8.2)
[2022-08-20] MEDS: inSUlin ASPART (NovoLOG) 1 UNIT/0.01 ML (CHARGE PER UNIT) SC SCH (05:14)
[2022-08-20] MEDS ORDERED: KCL 20 MEQ TAB (K-DUR) PO SCH ×2 (06:00)
[2022-08-20] MEDS ORDERED: MAGNESIUM 1 GM/100 ML IVPB 100 ML IV SCH ×2 (06:00)
[2022-08-20] MEDS ORDERED: POTASSIUM CL 10MEQ/50ML IVPB 50 ML IV SCH ×2 (06:00)
[2022-08-20] MEDS: NS IV 1000 ML 1,000 ML IV SCH ×2 (06:19→07:45)
[2022-08-20] MEDS: DOCUSATE SODIUM 100 MG (COLACE) CAP PO SCH (07:45)
[2022-08-20] MEDS ORDERED: APIX5TAB PO (09:42)
[2022-08-20] MEDS ORDERED: CEFD300C3 PO (09:43)
--- NOTE | 2022-08-20 09:44 | Discharge Summary ---
Diagnosis/Chief Complaint Date of Admission Aug 19, 2022 at 14:54 Date of Discharge Discharge Date: Aug 20, 2022 Discharge Diagnosis Symptomatic bradycardia assessed by cardiology to be a vasovagal syncopal episode Recent DVT Obesity Early PNA placed on abx Suspicion for JOSHUA Hypertension Diabetes Discharge Summary Discharge Physical Examination Allergies: Coded Allergies: No Known Drug Allergies (Unverified , 06/12/22) Vitals & I&Os Vital Signs Date Time Temp Pulse Resp B/P (MAP) Pulse Ox O2 Delivery O2 Flow Rate FiO2 08/20/22 10:15 08/20/22 09:00 84 14 Nasal Cannula 2.00 08/20/22 08:10 95 08/20/22 08:00 36.4 08/19/22 15:47 21 General Appearance: Alert, Oriented X3, Cooperative Respiratory: Clear to Auscultation Cardiovascular: Regular Rate Neuro: Normal Gait Psych/Mental Status: Mental Status NL Hospital Course Was the Problem List Reviewed?: Yes Hospital course: Patient had an uneventful hospital course after he was moved from [facility] due to symptomatic bradycardia. He was given IV fluids and placed in ICU and cardiology evaluated him. He recovered quickly no evidence of any pathological arrhythmia it was assessed to have been a vasovagal episode and he was deemed stable for discharge. Early pneumonia noted on chest x-ray placed on empiric IV antibiotics. Antibiotics were changed to pills. He has suspicion for JOSHUA I would recommend a sleep study and close follow-up with his primary. Labs (last 24 hrs) Laboratory Tests 08/19/22 11:32: White Blood Count 8.5, Red Blood Count 5.46, Hemoglobin 15.0, Hematocrit 45, Mean Corpuscular Volume 82, Mean Corpuscular Hemoglobin 28, Mean Corpuscular Hemoglobin Concent 33, Red Cell Distribution Width 13.8, Platelet Count 251, Mean Platelet Volume 9.5, Immature Granulocyte % (Auto) 0, Neutrophils (%) (Auto) 72, Lymphocytes (%) (Auto) 19, Monocytes (%) (Auto) 7, Eosinophils (%) (Auto) 1, Basophils (%) (Auto) 1, Neutrophils # (Auto) 6.1, Lymphocytes # (Auto) 1.6, Monocytes # (Auto) 0.6, Eosinophils # (Auto) 0.1, Basophils # (Auto) 0.1, Immature Granulocyte # (Auto) 0.0, Prothrombin Time 14.3, INR Comment 1.1, Activated Partial Thromboplast Time 31, Sodium Level 136, Potassium Level 4.5, Chloride Level 102, Carbon Dioxide Level 23, Anion Gap 11, Blood Urea Nitrogen 20H, Creatinine 0.96, Estimat Glomerular Filtration Rate 87, BUN/Creatinine Ratio 21, Glucose Level 253H, Calcium Level 9.2, Corrected Calcium 9.1, Magnesium Level 2.1, Total Bilirubin 1.0, Aspartate Amino Transf (AST/SGOT) 14, Alanine Aminotransferase (ALT/SGPT) 16, Alkaline Phosphatase 72, Troponin I < 0.30, Pro-B-Type Natriuretic Peptide < 36.0, Total Protein 7.6, Albumin 4.1, Lipase 13 08/19/22 15:30: Troponin I < 0.028 08/19/22 15:47: Glucometer 145H 08/19/22 19:50: Glucometer 239H 08/20/22 04:39: White Blood Count 8.6, Red Blood Count 5.36, Hemoglobin 14.3, Hematocrit 44, Mean Corpuscular Volume 83, Mean Corpuscular Hemoglobin 27, Mean Corpuscular Hemoglobin Concent 32, Red Cell Distribution Width 14.1, Platelet Count 243, Mean Platelet Volume 9.8, Immature Granulocyte % (Auto) 0, Neutrophils (%) (Auto) 65, Lymphocytes (%) (Auto) 23, Monocytes (%) (Auto) 9, Eosinophils (%) (Auto) 1, Basophils (%) (Auto) 1, Neutrophils # (Auto) 5.6, Lymphocytes # (Auto) 2.0, Monocytes # (Auto) 0.8, Eosinophils # (Auto) 0.1, Basophils # (Auto) 0.1, Immature Granulocyte # (Auto) 0.0, Sodium Level 138, Potassium Level 4.1, Chloride Level 109H, Carbon Dioxide Level 19L, Anion Gap 10, Blood Urea Nitrogen 14, Creatinine 0.91, Estimat Glomerular Filtration Rate 92, BUN/Creatinine Ratio 15, Glucose Level 151H, Calcium Level 8.9, Corrected Calcium 9.1, Phosphorus Level 3.3, Magnesium Level 2.1, Total Bilirubin 1.2H, Aspartate Amino Transf (AST/SGOT) 13, Alanine Aminotransferase (ALT/SGPT) 16, Alkaline Phosphatase 64, Total Protein 7.1, Albumin 3.7 Pending Labs Laboratory Tests 08/19/22 11:32: White Blood Count 8.5, Red Blood Count 5.46, Hemoglobin 15.0, Hematocrit 45, Mean Corpuscular Volume 82, Mean Corpuscular Hemoglobin 28, Mean Corpuscular Hemoglobin Concent 33, Red Cell Distribution Width 13.8, Platelet Count 251, Mean Platelet Volume 9.5, Immature Granulocyte % (Auto) 0, Neutrophils (%) (Auto) 72, Lymphocytes (%) (Auto) 19, Monocytes (%) (Auto) 7, Eosinophils (%) (Auto) 1, Basophils (%) (Auto) 1, Neutrophils # (Auto) 6.1, Lymphocytes # (Auto) 1.6, Monocytes # (Auto) 0.6, Eosinophils # (Auto) 0.1, Basophils # (Auto) 0.1, I mmature Granulocyte # (Auto) 0.0, Prothrombin Time 14.3, INR Comment 1.1, Activated Partial Thromboplast Time 31, Sodium Level 136, Potassium Level 4.5, Chloride Level 102, Carbon Dioxide Level 23, Anion Gap 11, Blood Urea Nitrogen 20, Creatinine 0.96, Estimat Glomerular Filtration Rate 87, BUN/Creatinine Ratio 21, Glucose Level 253, Calcium Level 9.2, Corrected Calcium 9.1, Magnesium Level 2.1, Total Bilirubin 1.0, Aspartate Amino Transf (AST/SGOT) 14, Alanine Aminotransferase (ALT/SGPT) 16, Alkaline Phosphatase 72, Troponin I < 0.30, Pro-B-Type Natriuretic Peptide < 36.0, Total Protein 7.6, Albumin 4.1, Lipase 13 08/19/22 15:30: Troponin I < 0.028 08/19/22 15:47: Glucometer 145 08/19/22 19:50: Glucometer 239 08/20/22 04:39: White Blood Count 8.6, Red Blood Count 5.36, Hemoglobin 14.3, Hematocrit 44, Me an Corpuscular Volume 83, Mean Corpuscular Hemoglobin 27, Mean Corpuscular Hemoglobin Concent 32, Red Cell Distribution Width 14.1, Platelet Count 243, Mean Platelet Volume 9.8, Immature Granulocyte % (Auto) 0, Neutrophils (%) (Auto) 65, Lymphocytes (%) (Auto) 23, Monocytes (%) (Auto) 9, Eosinophils (%) (Auto) 1, Basophils (%) (Auto) 1, Neutrophils # (Auto) 5.6, Lymphocytes # (Auto) 2.0, Monocytes # (Auto) 0.8, Eosinophils # (Auto) 0.1, Basophils # (Auto) 0.1, Immature Granulocyte # (Auto) 0.0, Sodium Level 138, Potassium Level 4.1, Chloride Level 109, Carbon Dioxide Level 19, Anion Gap 10, Blood Urea Nitrogen 14, Creatinine 0.91, Estimat Glomerular Filtration Rate 92, BUN/Creatinine Ratio 15, Glucose Level 151, Mean Blood Glucose [Pending], Hemoglobin A1c [Pending], Calcium Level 8.9, Corrected Calcium 9.1, Phosphorus Level 3.3, Magnesium Level 2.1, Total Bilirubin 1.2, Aspartate Amino Transf (AST/SGOT) 13, Alanine Aminotransferase (ALT/SGPT) 16, Alkaline Phosphatase 64, Total Protein 7.1, Albumin 3.7 Discharge Home Medications: Active Scripts Active Cefdinir 300 Mg Capsule 300 Mg PO BID Eliquis (Apixaban) 5 Mg Tablet 5 Mg PO BID 90 Days Instructions to patient/family Please see electronic discharge instructions given to patient. Clinical Quality Measures AMI/AHF: ASA po Prior to arrival: No DVT/VTE Risk/Contraindication: Contraindications-Mechi: Other *list below* Other: dvt FRANKIE PARK DO Aug 20, 2022 09:44
[2022-08-20] MEDS ORDERED: APIXABAN 5 MG (ELIQUIS) TABLET PO SCH (09:45)
--- NOTE | 2022-08-20 09:46 | Consultation-Cardiology ---
HPI-Cardiology Cardiology Consultation Date of Consultation 08/20/22 Date of Admission Time Seen by Provider: 09:43 Indication: Bradycardia HPI 66-year-old gentleman with recently diagnosed DVT, started on Eliquis. Patient came into the emergency room with atypical chest pain, pain between his shoulder. Persistent, outpatient having the blood drawn he became bradycardic and diaphoretic. Patient was admitted for observation. Denied any syncope in the past but admits to having episodes of dizziness and diaphoresis with needlestick. He denied any chest pain. No palpitation. Reporting improvement in his pedal edema Home Medications & Allergies Allergies: Coded Allergies: No Known Drug Allergies (Unverified , 06/12/22) Home Medication List Reviewed: Yes GPU-Wlzraj-Wmlsvp Hx Patient Social History Marital Status: Employed/Student: retired Smoking Status: Never a Smoker Alcohol Use?: No Past Medical History Discussed below Family Medical History Significant Family History: No Pertinent Family Hx, Heart Disease Review of Systems-General Review of Systems Constitutional: see HPI, dizziness, malaise, weakness EENTM: see HPI, no symptoms reported Respiratory: dyspnea on exertion Cardiovascular: see HPI, chest pain, palpitations Gastrointestinal: no symptoms reported, see HPI Genitourinary: no symptoms reported, see HPI Musculoskeletal: no symptoms reported Skin: no symptoms reported Psychiatric/Neurological: No Symptoms Reported Reviewed Test Results Reviewed Test Results Lab Laboratory Tests Test 08/19/22 11:32 08/19/22 15:30 08/19/22 15:47 08/19/22 19:50 Range/Units White Blood Count 8.5 4.3-11.0 10^3/uL Red Blood Count 5.46 4.30-5.52 10^6/uL Hemoglobin 15.0 13.3-17.7 g/dL Hematocrit 45 40-54 % Mean Corpuscular Volume 82 80-99 fL Mean Corpuscular Hemoglobin 28 25-34 pg Mean Corpuscular Hemoglobin Concent 33 32-36 g/dL Red Cell Distribution Width 13.8 10.0-14.5 % Platelet Count 251 130-400 10^3/uL Mean Platelet Volume 9.5 9.0-12.2 fL Immature Granulocyte % (Auto) 0 % Neutrophils (%) (Auto) 72 42-75 % Lymphocytes (%) (Auto) 19 12-44 % Monocytes (%) (Auto) 7 0-12 % Eosinophils (%) (Auto) 1 0-10 % Basophils (%) (Auto) 1 0-10 % Neutrophils # (Auto) 6.1 1.8-7.8 10^3/uL Lymphocytes # (Auto) 1.6 1.0-4.0 10^3/uL Monocytes # (Auto) 0.6 0.0-1.0 10^3/uL Eosinophils # (Auto) 0.1 0.0-0.3 10^3/uL Basophils # (Auto) 0.1 0.0-0.1 10^3/uL Immature Granulocyte # (Auto) 0.0 0.0-0.1 10^3/uL Prothrombin Time 14.3 12.2-14.7 SEC INR Comment 1.1 0.8-1.4 Activated Partial Thromboplast Time 31 24-35 SEC Sodium Level 136 135-145 MMOL/L Potassium Level 4.5 3.6-5.0 MMOL/L Chloride Level 102 98-107 MMOL/L Carbon Dioxide Level 23 21-32 MMOL/L Anion Gap 11 5-14 MMOL/L Blood Urea Nitrogen 20 H 7-18 MG/DL Creatinine 0.96 0.60-1.30 MG/DL Estimat Glomerular Filtration Rate 87 BUN/Creatinine Ratio 21 Glucose Level 253 H 70-105 MG/DL Calcium Level 9.2 8.5-10.1 MG/DL Corrected Calcium 9.1 8.5-10.1 MG/DL Magnesium Level 2.1 1.6-2.4 MG/DL Total Bilirubin 1.0 0.1-1.0 MG/DL Aspartate Amino Transf (AST/SGOT) 14 5-34 U/L Alanine Aminotransferase (ALT/SGPT) 16 0-55 U/L Alkaline Phosphatase 72 40-136 U/L Troponin I < 0.30 < 0.028 <0.028 NG/ML Pro-B-Type Natriuretic Peptide < 36.0 <125.0 PG/ML Total Protein 7.6 6.4-8.2 GM/DL Albumin 4.1 3.2-4.5 GM/DL Lipase 13 8-78 U/L Glucometer 145 H 239 H 70-110 MG/DL Test 08/20/22 04:39 Range/Units White Blood Count 8.6 4.3-11.0 10^3/uL Red Blood Count 5.36 4.30-5.52 10^6/uL Hemoglobin 14.3 13.3-17.7 g/dL Hematocrit 44 40-54 % Mean Corpuscular Volume 83 80-99 fL Mean Corpuscular Hemoglobin 27 25-34 pg Mean Corpuscular Hemoglobin Concent 32 32-36 g/dL Red Cell Distribution Width 14.1 10.0-14.5 % Platelet Count 243 130-400 10^3/uL Mean Platelet Volume 9.8 9.0-12.2 fL Immature Granulocyte % (Auto) 0 % Neutrophils (%) (Auto) 65 42-75 % Lymphocytes (%) (Auto) 23 12-44 % Monocytes (%) (Auto) 9 0-12 % Eosinophils (%) (Auto) 1 0-10 % Basophils (%) (Auto) 1 0-10 % Neutrophils # (Auto) 5.6 1.8-7.8 10^3/uL Lymphocytes # (Auto) 2.0 1.0-4.0 10^3/uL Monocytes # (Auto) 0.8 0.0-1.0 10^3/uL Eosinophils # (Auto) 0.1 0.0-0.3 10^3/uL Basophils # (Auto) 0.1 0.0-0.1 10^3/uL Immature Granulocyte # (Auto) 0.0 0.0-0.1 10^3/uL Sodium Level 138 135-145 MMOL/L Potassium Level 4.1 3.6-5.0 MMOL/L Chloride Level 109 H 98-107 MMOL/L Carbon Dioxide Level 19 L 21-32 MMOL/L Anion Gap 10 5-14 MMOL/L Blood Urea Nitrogen 14 7-18 MG/DL Creatinine 0.91 0.60-1.30 MG/DL Estimat Glomerular Filtration Rate 92 BUN/Creatinine Ratio 15 Glucose Level 151 H 70-105 MG/DL Calcium Level 8.9 8.5-10.1 MG/DL Corrected Calcium 9.1 8.5-10.1 MG/DL Phosphorus Level 3.3 2.3-4.7 MG/DL Magnesium Level 2.1 1.6-2.4 MG/DL Total Bilirubin 1.2 H 0.1-1.0 MG/DL Aspartate Amino Transf (AST/SGOT) 13 5-34 U/L Alanine Aminotransferase (ALT/SGPT) 16 0-55 U/L Alkaline Phosphatase 64 40-136 U/L Total Protein 7.1 6.4-8.2 GM/DL Albumin 3.7 3.2-4.5 GM/DL Physical Exam Physical Exam Vital Signs Vital Signs - First Documented 08/19/22 08/19/22 08/19/22 11:10 15:47 15:58 Temp 35.3 Pulse 93 Resp 16 B/P (MAP) 151/86 (107) Pulse Ox 94 O2 Delivery Room Air O2 Flow Rate 0.00 FiO2 21 Capillary Refill : Less Than 3 Seconds Height, Weight, BMI Height: '" Weight: lbs. oz. kg; 33.81 BMI Method: General Appearance: No Apparent Distress, WD/WN, Chronically ill, Obese, Other Eyes: Bilateral Eye Normal Inspection, Bilateral Eye PERRL, Bilateral Eye EOMI HEENT: PERRL/EOMI, Normal ENT Inspection, Pharynx Normal Neck: Full Range of Motion, Normal Inspection, Non Tender, Supple Respiratory: Chest Non Tender, Lungs Clear, Normal Breath Sounds, No Accessory Muscle Use, No Respiratory Distress Cardiovascular: Regular Rate, Rhythm, No Edema, Normal Peripheral Pulses Gastrointestinal: Normal Bowel Sounds, Non Tender, Soft; No Distended, No Guarding Back: Normal Inspection, No CVA Tenderness, No Vertebral Tenderness Extremity: Normal Capillary Refill, Normal Inspection, Normal Range of Motion, Non Tender, No Calf Tenderness, No Pedal Edema Neurologic/Psychiatric: Alert, No Motor/Sensory Deficits, Normal Mood/Affect Skin: Normal Color, Warm/Dry Lymphatic: No Adenopathy A/P-Cardiology Admission Diagnosis Chest pain Bradycardia Diabetes mellitus Obesity Assessment/Plan Chest pain, atypical in presentation, multiple risk factors for coronary artery disease including male, age 66, family history of heart disease, diabetes mellitus, obesity and borderline hyperlipidemia. Discussed the management plan, recommended evaluating Lexiscan stress test as an outpatient Near syncope, transient episode of severe bradycardia Vasovagal after needlestick No further episode, no arrhythmia detected Reassured at this time. Continue to monitor DVT, diagnosed 2 weeks ago and started on Eliquis, continue on Eliquis for now Diabetes mellitus, starting on metformin Borderline hyperlipidemia, working on weight loss and exercise Monitor lipids Obesity, BMI 33, working on weight loss and exercise Increased risk of sleep apnea, recommend evaluating sleep study as an outpatient Okay for discharge and follow-up as an outpatient Clinical Quality Measures AMI/AHF: ASA po Prior to arrival: No DVT/VTE Risk/Contraindication: Contraindications-Mechi: Other *list below* Other: dvt REENA PORRAS MD Aug 20, 2022 09:46
== END 2022-08-20 10:15 | disposition home or self-care (01) ==
LOC: EDUNIT# 11:10 → ER FS 11:11 → ICU 14:54
PROVIDERS: ADMIT Internal Medicine; ATTEND Internal Medicine
DX: R00.1 Bradycardia, unspecified (principal); R55 Syncope and collapse; J18.9 Pneumonia, unspecified organism; I10 Essential (primary) hypertension; E11.9 Type 2 diabetes mellitus without complications; I82.409 Acute embolism and thrombosis of unspecified deep veins of unspecified lower extremity; R07.9 Chest pain, unspecified; E66.9 Obesity, unspecified; E78.5 Hyperlipidemia, unspecified; Z68.33 Body mass index [BMI] 33.0-33.9, adult; Z79.01 Long term (current) use of anticoagulants
CPT/HCPCS: 36415; 71045; 80053 ×2; 82947; 83036; 83690; 83735 ×2; 83880; 84100; 84484 ×2; 85025 ×2; 85610; 85730; 87081; 93005; 93041; 96361; 96366 ×2; 99284; C8929; G0378; 93306

== ENCOUNTER 2022-11-25 19:10 | Emergency (ER) | payer MEDICARE, OTHER ==
[~2022-11-25] VITALS: Ht 177.8 cm; Wt 97.3 kg
[~2022-11-25 19:10] MED LIST changes: +CEFD300C3 PO
[2022-11-25 19:32] LABS: BASOPHILS # (AUTO) 0.1 10^3/uL (0.0-0.1); BASOPHILS % (AUTO) 1 % (0-10); EOSINOPHILS # (AUTO) 0.2 10^3/uL (0.0-0.3); EOSINOPHILS % (AUTO) 2 % (0-10); HEMATOCRIT 45 % (40-54); HEMOGLOBIN 14.8 g/dL (13.3-17.7); LYMPHOCYTES # (AUTO) 2.2 10^3/uL (1.0-4.0); LYMPHOCYTES % (AUTO) 20 % (12-44); MEAN CORPUSCULAR HEMOGLOBIN 28 pg (25-34); MEAN CORPUSCULAR HGB CONC 33 g/dL (32-36); MEAN CORPUSCULAR VOLUME 85 fL (80-99); MONOCYTES # (AUTO) 0.9 10^3/uL (0.0-1.0); MONOCYTES % (AUTO) 8 % (0-12); NEUTROPHILS # (AUTO) 7.7 10^3/uL (1.8-7.8); NEUTROPHILS % (AUTO) 70 % (42-75); PLATELET COUNT 225 10^3/uL (130-400)
[2022-11-25 19:41] LABS: PROTHROMBIN TIME PATIENT 13.4 SEC (12.2-14.7)
--- NOTE | 2022-11-25 19:45 | ED Chest Pain ---
General Chief Complaint: Chest Pain Stated Complaint: LEFT CHEST PAIN Nursing Triage Note: co cp that started off and on since last night. states it hurts when he takes a deep breath. Source: patient, spouse History of Present Illness Date Seen by Provider: Nov 25, 2022 Time Seen by Provider: 19:18 Initial Comments [id number] male presenting with complaints of chest pain that is sharp in nature. He states it started hurting last night and hurts more when he takes a deep breath. Pain has been present off and on since last night. He did take Tylenol this afternoon and felt it was helping some with the pain. He recently was diagnosed with a DVT in the right lower extremity and is on Eliquis for that. They were concerned that he had something else going on in his chest since he had the sharp pains. Initially he thought that it might be a muscle strain or spasm but this afternoon he thought it might be something more so he came to the emergency department. He immediately was getting upset and complaining about having an EKG done and being told that he would get blood work as he states when he was seen previously he passed out with needle stick and then "everybody made a big fuss and I ended up transferred to [place]". Timing/Duration: 1-2 days Severity/Quality: moderate, sharp Radiation: no radiation Activities at Onset: none Prior CP/Workup: non-cardiac Modifying Factors: worse with breathing ASA po OPERATIONS RESEARCH DIRECTOR: No NTG SL OPERATIONS RESEARCH DIRECTOR: No Associated Symptoms: No abdominal pain, No back pain, No diaphoresis, No dizziness, No edema, No fatigue, No fever/chills, No headache, No heartburn, No nausea/vomiting, No rash, No shortness of breath, No swelling/lump in chest, No syncope, No weakness Allergies and Home Medications Allergies Coded Allergies: No Known Drug Allergies (Unverified , 06/12/22) Patient Home Medication List Home Medication List Reviewed: Yes Apixaban (Eliquis) 5 Mg Tablet, 5 MG PO BID Prescribed by: FRANKIE PARK on 08/20/22941 Azithromycin (Azithromycin) 250 Mg Tablet, 250 MG PO DAILY Prescribed by: BUCKY LARIOS on 11/25/222102 Cefdinir (Cefdinir) 300 Mg Capsule, 300 MG PO BID Prescribed by: FRANKIE PARK on 08/20/22 0943 Review of Systems Review of Systems Constitutional: No chills, No fever EENTM: No Symptoms Reported Respiratory: No Symptoms Reported Cardiovascular: See HPI Gastrointestinal: No Symptoms Reported Genitourinary: No Symptoms Reported Musculoskeletal: no symptoms reported Skin: no symptoms reported Psychiatric/Neurological: No Symptoms Reported Endocrine: No Symptoms Reported Past [id number] Hx Patient Social History Tobacco Use?: No Use of E-Cig and/or Vaping dev: No Substance use?: No Alcohol Use?: No Pt feels they are or have been: No Immunizations Up To Date Influenza Vaccine Up-to-Date: No; Not Current First/Initial COVID19 Vaccinat: 2020 Second COVID19 Vaccination Edi: 2020 Third COVID19 Vaccination Date: 2021 Past Medical History Surgery/Hospitalization HX: DVT right leg, enlarged prostate no surg Deep Vein Thrombosis Family Medical History No Pertinent Family Hx, Heart Disease Physical Exam Vital Signs Vital Signs - First Documented 11/25/22 19:20 Temp 36.9 Pulse 87 Resp 16 B/P (MAP) 148/75 (99) Pulse Ox 96 O2 Delivery Room Air Capillary Refill : Less Than 3 Seconds Height, Weight, BMI Height: '" Weight: lbs. oz. kg; 30.00 BMI Method: General Appearance: No Apparent Distress (Other than he was getting upset with staff as they were working on getting ECG and patient hooked up to monitor), WD/WN Neck: Full Range of Motion, Normal Inspection, Non Tender, Supple Respiratory: No Chest Non Tender (mild tenderness to palpation on left chest wall over pectoral muscle); Lungs Clear, Normal Breath Sounds, No Accessory Muscle Use, No Respiratory Distress Cardiovascular: Regular Rate, Rhythm, No Murmur, Normal Peripheral Pulses Gastrointestinal: Normal Bowel Sounds, No Pulsatile Mass, Non Tender, Soft Extremity: Normal Capillary Refill, Normal Inspection, No Pedal Edema Neurologic/Psychiatric: Alert, Oriented x3, hat former II-XII Norm as Tested Skin: Normal Color, Warm/Dry Progress/Results/Core Measures Results/Orders Lab Results Laboratory Tests Test 11/25/22 19:30 Range/Units White Blood Count 11.0 4.3-11.0 10^3/uL Red Blood Count 5.26 4.30-5.52 10^6/uL Hemoglobin 14.8 13.3-17.7 g/dL Hematocrit 45 40-54 % Mean Corpuscular Volume 85 80-99 fL Mean Corpuscular Hemoglobin 28 25-34 pg Mean Corpuscular Hemoglobin Concent 33 32-36 g/dL Red Cell Distribution Width 14.9 H 10.0-14.5 % Platelet Count 225 130-400 10^3/uL Mean Platelet Volume 10.0 9.0-12.2 fL Immature Granulocyte % (Auto) 0 % Neutrophils (%) (Auto) 70 42-75 % Lymphocytes (%) (Auto) 20 12-44 % Monocytes (%) (Auto) 8 0-12 % Eosinophils (%) (Auto) 2 0-10 % Basophils (%) (Auto) 1 0-10 % Neutrophils # (Auto) 7.7 1.8-7.8 10^3/uL Lymphocytes # (Auto) 2.2 1.0-4.0 10^3/uL Monocytes # (Auto) 0.9 0.0-1.0 10^3/uL Eosinophils # (Auto) 0.2 0.0-0.3 10^3/uL Basophils # (Auto) 0.1 0.0-0.1 10^3/uL Immature Granulocyte # (Auto) 0.0 0.0-0.1 10^3/uL Prothrombin Time 13.4 12.2-14.7 SEC INR Comment 1.0 0.8-1.4 Activated Partial Thromboplast Time 33 24-35 SEC Sodium Level 139 135-145 MMOL/L Potassium Level 3.9 3.6-5.0 MMOL/L Chloride Level 103 98-107 MMOL/L Carbon Dioxide Level 25 21-32 MMOL/L Anion Gap 11 5-14 MMOL/L Blood Urea Nitrogen 24 H 7-18 MG/DL Creatinine 0.92 0.60-1.30 MG/DL Estimat Glomerular Filtration Rate 91 BUN/Creatinine Ratio 26 Glucose Level 154 H 70-105 MG/DL Calcium Level 9.9 8.5-10.1 MG/DL Corrected Calcium 9.7 8.5-10.1 MG/DL Magnesium Level 2.2 1.6-2.4 MG/DL Total Bilirubin 0.8 0.1-1.0 MG/DL Aspartate Amino Transf (AST/SGOT) 18 5-34 U/L Alanine Aminotransferase (ALT/SGPT) 24 0-55 U/L Alkaline Phosphatase 80 40-136 U/L Troponin I < 0.30 <0.30 NG/ML Pro-B-Type Natriuretic Peptide < 36.0 <125.0 PG/ML Total Protein 8.0 6.4-8.2 GM/DL Albumin 4.3 3.2-4.5 GM/DL Lipase 17 8-78 U/L My Orders Orders - BUCKY LARIOS MD Cbc With Automated Diff (11/25/22 19:20) Magnesium (11/25/22 19:20) Ekg Tracing (11/25/22 19:20) Comprehensive Metabolic Panel (11/25/22 19:20) Protime With Inr (11/25/22 19:20) Partial Thromboplastin Time (11/25/22 19:20) O2 (11/25/22:20) Monitor-Rhythm Ecg Trace Only (11/25/22 19:20) Ed Iv/Invasive Line Start (11/25/22 19:20) Lipase (11/25/22 19:20) Troponin I Fs (11/25/22 19:20) Probnp Fs (11/25/22 19:20) Ct Angio Chest W (11/25/22 19:30) Iohexol Injection (Omnipaque 350 Mg/Ml 1 (11/25/22 20:15) Received Contrast (Hold Metformin- Contr (11/25/22 20:15) Ns (Ivpb) 100 Ml (Sodium Chloride 0.9% 1 (11/25/22 20:15) Azithromycin Tablet (Azithromycin Tabl (11/25/22 21:02) Medications Given in ED Current Medications Medications Dose Ordered Sig/Manav Route Start Time Stop Time Status Last Admin Dose Admin Iohexol 100 ml ONCE ONCE IV 11/25/22 20:15 11/25/22 20:16 DC 11/25/22 20:22 100 ML Sodium Chloride 100 ml ONCE ONCE IV 11/25/22 20:15 11/25/22 20:16 DC 11/25/22 20:22 80 ML Vital Signs/I&O 11/25/22 19:20 Temp 36.9 Pulse 87 Resp 16 B/P (MAP) 148/75 (99) Pulse Ox 96 O2 Delivery Room Air Blood Pressure Mean: 99 Progress Progress Note #1: Progress Note Differential diagnosis includes pleurisy, anxiety, muscle strain, chest wall pain, costochondritis, pneumonia, pulmonary embolism. As patient has been taking Eliquis it is unlikely that he has a PE but as patient is concerned about the pleuritic pain will obtain peripheral IV access and send labs to look at complete blood count, comprehensive metabolic profile, coagulation factors, troponin, proBNP, magnesium, lipase. CT scan angiography of the chest to look for PE or pathology to be causing pleuritic chest pain. Progress Note #2: Progress Note On my initial interpretation of his electrocardiogram he did not show any acute ST elevation. His cardiac telemetry was showing a sinus rhythm with heart rate in the 70s. His oxygen saturation is 95 to 97% on room air with blood pressure 147/75. His complete blood count showed white blood cell count at upper limit of normal at 11. Hemoglobin was normal at 14.8 and normal platelets at 225. Comprehensive metabolic profile showed no acute electrolyte abnormality other than mild elevation of his glucose to 154. Troponin was negative at less than 0.3 and magnesium was normal at 2.2. His lipase was also normal at 17. Coagulation factors were not elevated as his pro time was 13.4 with an INR of 1 and PTT of 33. Awaiting CT scan angiography of the chest to evaluate for acute pathology to cause his pleuritic chest pain. Progress Note #3: Progress Note Radiologist read the CT scan out as having no pulmonary embolism but he does have inflammation and possible infiltrate in the left upper lobe. This could certainly be contributing to his pleuritic chest pain. Will start him on a dose of azithromycin 500 mg here and finished a course of Z-Ant at home with 250 mg daily for 4 more days. Counseled on staying well-hydrated to help with inflammation and infection. Continue with his normal medications. He could continue with Tylenol as needed for pain. He could try alternating ice and heat to the chest wall in case some of this was musculoskeletal pain. Check back with the clinic if not improving or having more concerns. Initial ECG Impression Date: Nov 25, 2022 Initial ECG Impression Time: 19:22 Initial ECG Rate: 87 Initial ECG Rhythm: Normal Sinus Initial ECG Comparisson: Unchanged (Similar to August 19, 2022) Comment Based on my personal interpretation and review his electrocardiogram shows a normal sinus rhythm with a heart rate of 87 bpm. He has no acute ST elevation. MA interval 169 ms. QT interval 362 ms with a QTc interval 407 ms. Overall appears similar to tracing from August 19, 2022. Diagnostic Imaging Diagonstic Imaging: CT Plain Films/CT/US/NM/MRI: chest Comments [facility], [place] NAME: KJ JIMENEZ [facility] REC#: [id number] PT STATUS: REG ER : 1955 PHYSICIAN: BUCKY LARIOS MD ADMIT DATE: 11/25/22/ER FS Signed Date of Exam:11/25/22 CT ANGIO CHEST W PROCEDURE: CT angiography of the chest with contrast. TECHNIQUE: Multiple contiguous axial images were obtained through the chest after uneventful bolus administration of intravenous contrast. 3D reconstructed CTA MIP acquisitions were also performed. Auto Exposure Controls were utilized during the CT exam to meet ALARA standards for radiation dose reduction. INDICATION: Pleuritic left chest pain. Pulmonary emboli. COMPARISON: Chest radiograph on 08/19/2022. FINDINGS: This helical CT pulmonary angiogram is diagnostic to the subsegmental level branches of the pulmonary artery and demonstrates no pulmonary embolus. The heart and great vessels are unremarkable. There is no pericardial effusion. There is no axillary, mediastinal or hilar adenopathy. Focal opacity is seen in the lateral aspect of the left upper lobe measuring 2.0 x 1.8 cm with solid peripheral opacity and central lucency. Patchy opacities are seen in the lung bases. No central endobronchial obstructing lesion. No pneumothorax or pleural effusion. Osseous structures appear normal. Limited views of the upper abdomen are unremarkable. IMPRESSION: 1. No acute pulmonary embolus. 2. Focal opacity in the lateral aspect of the left upper lobe, suggestive of inflammatory/infectious process. 3. Atelectasis in the lung bases. Dictated by: Dictated on workstation # [id number] Dict: 11/25/222024 Trans: 11/25/222039 [facility] [id number] Interpreted by: MORRIS JAUREGUI DO Electronically signed by: MORRIS JAUREGUI DO 11/25/222039 Reviewed: Reviewed by Me Departure Impression Primary Impression: Pleuritic chest pain Additional Impression: Pneumonia of left upper lobe due to infectious organism Disposition: HOME, SELF-CARE Condition: Improved Departure-Patient Inst. Decision time for Depature: 21:02 Referrals: VERA WILKES MD (PCP/Family) Primary Care Physician Patient Instructions: Pleuritic Chest Pain ED, Pneumonia, Adult ED Add. Discharge Instructions: Stay well-hydrated and drink plenty of fluid. Take the full course of antibiotics to treat for infection of the lung. As the infection is getting cleared, the inflammation and sharp chest pain should improve. You can still try alternating ice and heat to your chest wall to help case any of this is also muscle related. Check back with the clinic if not having improvement or if having more concerns. All discharge instructions reviewed with patient and/or family. Voiced understanding. Scripts Azithromycin (Azithromycin) 250 Mg Tablet 250 MG PO DAILY for pneumonia for 4 Days, #4 TAB 0 Refills Prov: BUCKY LARIOS MD 11/25/22 BUCKY LARIOS MD Nov 25, 2022 19:45
[2022-11-25 19:52] LABS: ALANINE AMINOTRANSFERASE 24 U/L (0-55); ALBUMIN 4.3 GM/DL (3.2-4.5); ALKALINE PHOSPHATASE 80 U/L (40-136); BILIRUBIN,TOTAL 0.8 MG/DL (0.1-1.0); BUN/CREATININE RATIO 26; CALCIUM 9.9 MG/DL (8.5-10.1); CARBON DIOXIDE 25 MMOL/L (21-32); CHLORIDE 103 MMOL/L (98-107); CREATININE SERUM 0.92 MG/DL (0.60-1.30); GFR ESTIMATED 91; GLUCOSE 154 MG/DL (70-105); LIPASE 17 U/L (8-78); MAGNESIUM 2.2 MG/DL (1.6-2.4); POTASSIUM 3.9 MMOL/L (3.6-5.0); SODIUM 139 MMOL/L (135-145)
[2022-11-25] MEDS ORDERED: NS 100 ML (IVPB) BAG IV ONE (20:15)
[2022-11-25] MEDS ORDERED: HOLD METFORMIN - RECEIVED CONTRAST 20 ML VIAL IV SCH (20:15)
[2022-11-25] MEDS ORDERED: IOHEXOL 350 MG/ML 100 ML (OMNIPAQUE 350) VIAL IV ONE (20:15)
--- NOTE | 2022-11-25 20:39 | Diagnostic Imaging Report ---
PROCEDURE: CT angiography of the chest with contrast. TECHNIQUE: Multiple contiguous axial images were obtained through the chest after uneventful bolus administration of intravenous contrast. 3D reconstructed CTA MIP acquisitions were also performed. Auto Exposure Controls were utilized during the CT exam to meet ALARA standards for radiation dose reduction. INDICATION: Pleuritic left chest pain. Pulmonary emboli. COMPARISON: Chest radiograph on 08/19/2022. FINDINGS: This helical CT pulmonary angiogram is diagnostic to the subsegmental level branches of the pulmonary artery and demonstrates no pulmonary embolus. The heart and great vessels are unremarkable. There is no pericardial effusion. There is no axillary, mediastinal or hilar adenopathy. Focal opacity is seen in the lateral aspect of the left upper lobe measuring 2.0 x 1.8 cm with solid peripheral opacity and central lucency. Patchy opacities are seen in the lung bases. No central endobronchial obstructing lesion. No pneumothorax or pleural effusion. Osseous structures appear normal. Limited views of the upper abdomen are unremarkable. IMPRESSION: 1. No acute pulmonary embolus. 2. Focal opacity in the lateral aspect of the left upper lobe, suggestive of inflammatory/infectious process. 3. Atelectasis in the lung bases. Dictated by: Dictated on workstation # [id number]
[2022-11-25] MEDS ORDERED: AZITHROMYCIN 250 MG TABLET PO STA (21:02)
[2022-11-25] MEDS ORDERED: AZIT250T12 PO (21:03)
[2022-11-25 21:15] VITALS: BP 163/80
== END 2022-11-25 21:15 | disposition home or self-care (01) ==
LOC: EDUNIT# 19:10 → ER FS 19:12
DX: J16.8 Pneumonia due to other specified infectious organisms (principal)
CPT/HCPCS: 36415; 71275; 80053; 83690; 83735; 83880; 84484; 85025; 85610; 85730; 93005; 93041; Q9967

== ENCOUNTER → 2022-12-20 | Outpatient (CLI) | payer MEDICARE, OTHER ==
[~2022-12-20] MED LIST changes: +AZIT250T12 PO; +CATHETER FLUSH 10 ML SYR IVP PRN
[2022-12-20 09:30] VITALS: BP 134/79
[2022-12-20 09:33] VITALS: BP 138/79
--- NOTE | 2022-12-20 13:38 | Cardiology Stress Test Report ---
Stress Test Report Date of Procedure/Referring: Date of Procedure: Dec 20, 2022 PCP Vera Figueroa MD Admitting Physician Admitting Physician: Attending Physician: Jasmin Leach MD Baseline Heart Rate: 64 Baseline Blood Pressure: Blood Pressure Systolic: 138 Blood Pressure Diastolic: 79 Vital Signs Date Time Temp Pulse Resp B/P (MAP) Pulse Ox O2 Delivery O2 Flow Rate FiO2 12/20/22 09:30 62 18 134/79 (97) 99 Baseline Vital Signs Vital Signs Date Time Temp Pulse Resp B/P (MAP) Pulse Ox O2 Delivery O2 Flow Rate FiO2 12/20/22 09:30 62 18 134/79 (97) 99 Baseline EKG: Baseline EKG: NSR Summary: After explaining the procedure and details to the patient, he signed the consent and was brought to the stress nuclear laboratory. Patient exercised on standard Bryson protocol, EKG, heart rate and blood pressure were monitored continuously, resting and stress doses of radio tracer were injected, imaging was acquired and reviewed in the short axis, horizontal long axis and vertical long axis views Patient was able to exercise for a total of 3.30 minutes on Bryson protocol, METs 4.7 Maximum heart rate 140 Maximum blood pressure 194/68 Stress EKG, Minimal nondiagnostic changes Recovery EKG, Return to baseline TID: 1.09 SSS: 2 SDS: 2 EF: 55 Conclusion: Fair exercise tolerance for 3 minutes and 30 seconds on standard Bryosn protocol total of 4.7 METS achieving 92% of maximal expected heart rate Appropriate heart rate response to exercise with hypertensive response to exercise with peak blood pressure 194/68 return to baseline during recovery Nondiagnostic EKG changes with exercise return to baseline during recovery Diaphragmatic attenuation with typical male pattern with no significant ischemia or infarction noted on SPECT images Normal left ventricular size, ejection fraction 55% Copy Copies To 1: VERA FIGUEROA MD, BASHAR J MD Dec 20, 2022 13:38
== END ==
LOC: CARD 07:58
PROVIDERS: ATTEND Internal Medicine Cardiovascular Disease
DX: I10 Essential (primary) hypertension (principal); I25.10 Atherosclerotic heart disease of native coronary artery without angina pectoris
CPT/HCPCS: 78452; 93017; A9502